=== PATIENT | female | born 2000 | race Caucasian/White ===

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

== ENCOUNTER 2020-01-23 15:17 | Observation (INO) | payer BC ==
[~2020-01-23] VITALS: Ht 167.6 cm; Wt 56.8 kg
--- NOTE | 2020-01-23 16:30 | NUR ---
Patient to room 313 from [facility] ENT office. Patient A&Ox4. No complaints of SOB. Mother at the bedside. Patient is anxious. Nurse oriented patient to location, room and call light. Patient and mother just waiting for answers and to meet with the doctor. No further needs expressed from the patient. Call light within reach
[2020-01-23 16:42] LABS: BASO % 0.3 % (0.0-2.0); EOS % 0.5 % (0-4.0); GRAN % 69.4 % (42.2-75.2); HEMOGLOBIN 12.2 g/dl (12.0-15.0); LYMPH # 1.4 (1.2-3.4); LYMPH % 23.4 % (20.0-51.0); MEAN CELL VOLUME 86 fl (80.0-95.0); MEAN CORPUSCULAR HEMOGLOBIN 30 pg (26.0-32.0); MEAN CORPUSCULAR HGB CONC 35 g/dl (33.0-37.0); MEAN PLATELET VOLUME 8.9 fl (7.4-10.4); MONO # 0.4 (0.1-0.6); MONO % 6.1 % (1.7-9.3); PLATELET COUNT 243 K/mm3 (130-400); RED BLOOD COUNT 4.05 M/mm3 (4.10-5.30); REDCELL DISTRIBUTION WIDTH-CV 12.4 % (11.5-14.5)
[2020-01-23] MEDS ORDERED: SYEDA 3 MG-0.031 TAB PO (16:43)
[2020-01-23] MEDS ORDERED: LEXAPRO 5MG5 MG PO (16:43)
[2020-01-23 16:44] LABS: INR 1.1 (0.8-3.0); PROTHROMBIN TIME 11.9 SECONDS (9.7-12.8)
[2020-01-23 16:46] VITALS: BP 114/74; PULSE 107; TEMP 98.4
[2020-01-23 16:53] LABS: ALBUMIN 4.6 gm/dL (3.5-5.0); BILIRUBIN,TOTAL 0.7 mg/dL (0.0-1.0); CALCIUM 9.4 mg/dL (8.4-10.2); CREATININE, serum 0.71 (0.52-1.25); POTASSIUM 3.8 mmol/L (3.4-5.0); TOTAL PROTEIN 8.1 gm/dL (6.4-8.2)
[2020-01-23 17:49] LABS: ARTERIAL BLD GAS O2 SATURATION 97.8 % (92-100); ARTERIAL BLD GAS TCO2 CT 20.6; ARTERIAL BLOOD GAS BASE EXCESS -3.4 (-2-2); ARTERIAL BLOOD GAS HCO3 19.7 meq/L (22-26); ARTERIAL BLOOD GAS PCO2 29.9 mmHg (35-45); ARTERIAL BLOOD GAS PO2 101.3 mmHg (80-100); ARTERIAL BLOOD GAS pH 7.44 (7.35-7.45)
--- NOTE | 2020-01-23 17:58 | NUR ---
Patient laying in bed with mother at the bedside. A&Ox4. Denies pain, discomfort, SOB. VSS. IV CDI. No further needs expressed from the patient. Just waiting on results and further treatment plan. Call light within reach
[2020-01-23 19:56] VITALS: BP 105/56; PULSE 118; TEMP 99.1
--- NOTE | 2020-01-23 20:00 | NUR ---
Assessment complete at this time. Patient is on RA is is satting 98% with no increased work of breathing. Patient's HR is 115 bpm; Patient expresses having anxiety about being in the hospital. Patient's mother is at bedside. Basic comfort provided with warm blanket. Will continue to monitor.
[2020-01-24 00:12] VITALS: BP 111/61; PULSE 83; TEMP 98
[2020-01-24 03:52] VITALS: BP 103/59; PULSE 75; TEMP 97.8
[2020-01-24 08:42] VITALS: BP 110/69; PULSE 101; TEMP 98.2
--- NOTE | 2020-01-24 10:42 | NUR ---
Pt assessment completed and charted. Medication administered per JUN. Pt A&O, independent in room. Pt on room air, breathing is even and unlabored, pt tachy. pt denies SOB, N/V/D, abdominal pain, numbness or tingling. Pt satting 100% on room air. Ex ox performed, no O2 required. VSS other than HR tachy, pt does have some anxiety w/ being in hospital. LS cta, BS active. No further needs expressed. No IV acess, nursing order OK'ing to not have IV access, pt to discharge today.
--- NOTE | 2020-01-24 11:04 | NUR ---
Game [employer]pper met with patient to discuss discharge planning. Patient's mother, Celsa (ph#[phone]) is at bedside. Patient states she was living in her sorority until she tested positive for COVID five weeks ago. Patient now has been living with her parents Celsa and Dilan in [place]. Patient sees Dr. Cummins for primary care and obtains medications from [facility]. Patient also follows with Dr. Robins. Patient had exercise oximetry and does not require home oxygen. Patient has no questions or concerns about returning home at this time.
--- NOTE | 2020-01-24 11:46 | NUR ---
Pt discharge instructions discussed and reviewed w/ patient who verbalized understanding, all questions answered. Tele removed, tech called. No IV to remove. Pt escorted out, ambulatory, w/ this nurse no needs expressed.
--- NOTE | 2020-01-24 12:18 | NUR ---
First visit from the sampler tester. No needs right now.
== END 2020-01-24 11:53 | disposition home or self-care (01) ==
LOC: MEDICAL 15:17
PROVIDERS: ADMIT Hospitalist
DX: J96.01 Acute respiratory failure with hypoxia (principal); J45.20 Mild intermittent asthma, uncomplicated; F32.9 Major depressive disorder, single episode, unspecified; Z79.899 Other long term (current) drug therapy; Z86.19 Personal history of other infectious and parasitic diseases
CPT/HCPCS: 99222-AI

== ENCOUNTER → 2020-02-25 | Outpatient (CLI) | payer BC ==
[~2020-02-25] MED LIST: LEXAPRO 5MG5 MG PO; SYEDA 3 MG-0.031 TAB PO
== END ==
LOC: COL.RAD 13:30
DX: N92.6 Irregular menstruation, unspecified (principal)

== ENCOUNTER 2020-06-13 07:45 | Day surgery (SDC) | payer BC ==
[~2020-06-13] VITALS: Ht 165.1 cm; Wt 25.2 kg
[2020-06-13] VITALS (8 sets, daily range): BP systolic 106–121; BP diastolic 64–82; PULSE 68–126; TEMP 97.8–98.9
== END 2020-06-13 11:22 | disposition home or self-care (01) ==
LOC: SDCO 07:45
DX: K59.00 Constipation, unspecified (principal); R19.7 Diarrhea, unspecified; K62.89 Other specified diseases of anus and rectum; K92.1 Melena; K29.70 Gastritis, unspecified, without bleeding; U07.1 COVID-19; Z88.8 Allergy status to other drugs, medicaments and biological substances; F90.9 Attention-deficit hyperactivity disorder, unspecified type; J45.909 Unspecified asthma, uncomplicated; F41.9 Anxiety disorder, unspecified; F32.9 Major depressive disorder, single episode, unspecified
CPT/HCPCS: J2704; J7030